=== PATIENT | male | born 1985 | race Caucasian/White ===

== ENCOUNTER 2021-04-10 12:45 | Emergency (ER) | payer OTHER ==
[2021-04-10 12:59] VITALS: O2SAT 97
[2021-04-10] MEDS ORDERED: TORAdol 30 mg Injection IM ONE (13:28)
[2021-04-10] MEDS ORDERED: TORAdol 30 mg Injection ONE (13:33)
[2021-04-10 13:50] VITALS: BP 134/81; PULSE 102
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
== END 2021-04-10 14:37 | disposition home or self-care (01) ==
LOC: ED 12:45
DX: S62.307A Unspecified fracture of fifth metacarpal bone, left hand, initial encounter for closed fracture (principal)
CPT/HCPCS: 73130; 96372; 99284; J1885

== ENCOUNTER 2024-12-25 18:08 | Emergency (ER) | payer BC, OTHER ==
[2024-12-25 18:28] VITALS: RESP 20; TEMP 97.6; O2SAT 98
[2024-12-25] MEDS ORDERED: xanAX 0.5 MG ONE ×2 (18:36→18:42)
[2024-12-25] MEDS: xanAX 0.5 MG PO ONE ×2 (18:38→18:55)
[2024-12-25 18:55] VITALS: BP 140/95; PULSE 79
--- NOTE | 2024-12-25 18:58 | ERPHSYRPT ---
- History of Present Illness Time Seen by Provider: 12/25/24 18:22 Source: patient Exam Limitations: no limitations Patient Subjective Stated Complaint: Anxiety Triage Nursing Assessment: Patient ambulated back to ED and transferred self to bed. Patient A+O X 3. Patient's skin pink, warm and dry. Patient states he takes xanax 0.5 mg TID and Celexa 40mg daily. 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 He stated his older brother came by yesterday and then he realized he was out of his meds. Patient states his last dose of both were yesterday at 0800am. Patient states he is jittery and feels like his head his floating. Patient denies pain or discomfort. Physician History: 39-year-old with history of anxiety/depression/PTSD on Xanax and Celexa presented in the ER after he ran out of his prescription 3 days early. Patient called his primary care who is not in office today, patient thinks some of his family member possibly have taken those pills when he was not at home. Denies any suicidal or homicidal ideations but worsening of anxiety symptoms like restlessness, anxiousness. Denies any chest pain palpitations or shortness of breath. We have called patient's PCP Helen Zimmerman who recommended that patient can have 1 dose now and 1 for tonight, she would be in the office tomorrow to call in a new prescription. Patient is given 1 dose in here and want to go home. Recommended outpatient follow-up with PCP tomorrow. Allergies/Adverse Reactions: pertussis vaccine,fluid [Pertussis Vaccine,Fluid] Allergy (Unknown, Verified 12/25/24 18:16) Home Medications: Alprazolam [Xanax] 1 ea DAILY 04/10/21 [History] Citalopram Hydrobromide [Citalopram HBr] 1 ea DAILY 04/10/21 [History] Hx Tetanus, Diphtheria Vaccination/Date Given: No Hx Influenza Vaccination/Date Given: Yes Hx Pneumococcal Vaccination/Date Given: No Immunizations Up to Date: Yes Travel Risk - International Travel Have you traveled outside of the country in past 3 weeks: No - Emerging Infectious Disease Are you exhibiting symptoms associated with any current EIDs: No - Review of Systems Constitutional: No Symptoms Ears, Nose, & Throat: No Symptoms Respiratory: No Symptoms Cardiac: No Symptoms Abdominal/Gastrointestinal: No Symptoms Musculoskeletal: No Symptoms Neurological: No Symptoms Psychological: Anxiety, Depression Endocrine: No Symptoms - Past Medical History Pertinent Past Medical History: Yes Neurological History: No Pertinent History ENT History: No Pertinent History Cardiac History: No Pertinent History Respiratory History: No Pertinent History Endocrine Medical History: No Pertinent History Musculoskeletal History: No Pertinent History GI Medical History: Gallbladder Disease, Ulcer, Other History: No Pertinent History Psycho-Social History: Anxiety, Depression Male Reproductive Disorders: No Pertinent History - Past Surgical History Past Surgical History: Yes Neuro Surgical History: No Pertinent History Cardiac: No Pertinent History Respiratory: No Pertinent History Gastrointestinal: Bowel Surgery, Cholecystectomy Genitourinary: No Pertinent History Musculoskeletal: Orthopedic Surgery, Other Male Surgical History: No Pertinent History Other Surgical History: 2001 quadracept repair right ,nose fx 2002,colon perf and gall bladder burst 2011 - Social History Smoking Status: Former smoker Exposure to second hand smoke: No Drug Use: none - Social Determinants of Health Will the patient participate in the screening: Yes Do you worry about a steady place to live?: No Do you have any problems with any of the following?: No known problems In the past 12 months,have you had to go without utilities?: No Transportation Issues: No Has anyone in your support network made you feel unsafe?: No Have you or anyone in your house had to go w/o enough food: No - Nursing Vital Signs Nursing Vital Signs: Initial Vital Signs Temperature 97.6 F 12/25/24 18:17 Pulse Rate 76 12/25/24 18:17 Respiratory Rate 20 12/25/24 18:17 Blood Pressure 156/86 12/25/24 18:17 O2 Sat by Pulse Oximetry 98 12/25/24 18:17 Pain Scale Pain Intensity 0 - Physical Exam General Appearance: no apparent distress Eye Exam: PERRL/EOMI Neck Exam: normal inspection, full range of motion Respiratory Exam: normal breath sounds, lungs clear Cardiovascular Exam: regular rate/rhythm, normal heart sounds Extremity Exam: normal inspection, normal range of motion Neurologic Exam: alert, oriented x 3, cooperative Skin Exam: normal color SpO2 Interpretation: normal SpO2: 98 O2 Delivery: Room Air Ordered Tests: Medication Summary Discontinued Medications Generic Name Dose Route Start Last Admin Trade Name Freq PRN Reason Stop Dose Admin Alprazolam 1 mg 12/25/24 18:35 12/25/24 18:38 Alprazolam 0.5 Mg Tablet PO 12/25/24 18:36 1 mg STAT ONE Administration Alprazolam Confirm 12/25/24 18:36 Alprazolam 0.5 Mg Tablet Administered 12/25/24 18:37 Dose 1 mg .ROUTE .STK-MED ONE Alprazolam Confirm 12/25/24 18:42 Alprazolam 0.5 Mg Tablet Administered 12/25/24 18:43 Dose 1 mg .ROUTE .STK-MED ONE - Progress Progress: unchanged Progress Note: 12/25/24 18:57 39-year-old with history of anxiety/depression/PTSD on Xanax and Celexa presented in the ER after he ran out of his prescription 3 days early. Patient called his primary care who is not in office today, patient thinks some of his family member possibly have taken those pills when he was not at home. Denies any suicidal or homicidal ideations but worsening of anxiety symptoms like restlessness, anxiousness. Denies any chest pain palpitations or shortness of breath. We have called patient's PCP Helen Zimmerman who recommended that patient can have 1 dose now and 1 for tonight, she would be in the office tomorrow to call in a new prescription. Patient is given 1 dose in here and want to go home. Recommended outpatient follow-up with PCP tomorrow. Counseled pt/family regarding: diagnosis, need for follow-up Medical Desision Making - Independent Historian Additional History obtained from: PCP - Discussion of managment Care discussed with:: PCP (Helen Zimmerman) Agreed on:: need for follow-up Will see patient: In office - Diagnostic Testing Diagnostic test were ordered, analyzed, and reviewed by me: No - Risk of complications The pt has a mod risk of morbidity or mortality based on: Need for prescription drug management - Departure Departure Disposition: Home Clinical Impression: Anxiety Condition: Stable Critical Care Time: No Referrals: KASHMIR ZIMMERMAN NP [Primary Care Provider] - Follow up/PCP as directed (Tomorrow for evaluation) Instructions: Anxiety, Adult (DC) Additional Instructions: Follow-up with PCP for reevaluation tomorrow. Takes Xanax as needed. Return to ER for any worsening.
== END 2024-12-25 19:14 | disposition home or self-care (01) ==
LOC: ED 18:08
DX: F41.9 Anxiety disorder, unspecified (principal); Z79.899 Other long term (current) drug therapy
CPT/HCPCS: 99282; 99283; A9270-GY